=== PATIENT | male | born 1995 | race Caucasian/White ===

== ENCOUNTER 2022-02-14 19:31 | Emergency (ER) | payer OTHER, SELFPAY ==
[2022-02-14 19:32] VITALS: BP 136/94; PULSE 96; RESP 18; TEMP 36.6; O2SAT 97; BMI 28.5
--- NOTE | 2022-02-14 19:49 | RAD_ITS ---
STUDY: XR Hand Min 3 Views REASON FOR EXAM: Male, 26 years old. Injury/Pain TECHNIQUE: XR Hand Min 3 Views RIGHT COMPARISON: None. FINDINGS: Normal radiocarpal articulation. Normal distal radioulnar joint. Normal visualized carpal bones. Normal carpal articulations Normal carpometacarpal articulation of the thumb. Normal second through fifth carpometacarpal joints. Normal metacarpi. Normal metacarpophalangeal joint of the thumb. Normal interphalangeal joint of the thumb. Normal proximal and distal phalanges of the thumb. Normal metacarpophalangeal joints of the second through fifth fingers. Normal proximal and distal interphalangeal joints of the second through fifth fingers. Normal phalanges of the second through fifth fingers. The soft tissue structures are unremarkable. RAD/Hand Min 3 Views IMPRESSION: There are no acute findings. Electronically Signed: Jr Quinn MD at 20:04 EST ,
--- NOTE | 2022-02-14 20:06 | ED.RN ---
drug screener with patient
--- NOTE | 2022-02-14 21:43 | EX.ED.UPPERE ---
HPI History of Present Illness Chief Complaint: Upper Extremity Injury Informant: patient Narrative Narrative: Patient hurt his right thumb at work approximately 46 hours ago. 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 Client swung out at him. Ended up hitting the patient's hand as it was in front of him. The thumb bent back in a hyperextension type position. He is right-hand dominant and this was the right thumb. He has pain really in the midportion of the thenar eminence. No wrist pain. No pain in other fingers elbow shoulder or other areas. No blood thinners. Pressing on it and motion makes it worse rest makes it better. Patient also has no numbness tingling. No fevers. Has not been ill recently. Patient has no chronic medical problems No regular medications No allergies No prior surgeries to the hand. PFSH PFSH Allergy/AdvReac Type Severity Reaction Status Date / Time No Known Allergies Allergy Verified 02/14/22 19:32 Social History Smoking Status: Never smoker EXAM Physical Exam Narrative Exam Narrative: Patient awake alert no acute distress. No sign of head trauma. Patient is breathing easily. He is awake alert no confusion. He does have a small amount of developing bruising at the midportion of his thenar eminence on the right hand. But is not really swollen. There is some mild tenderness there. No deformity. Bhanu's and reverse Bhanu's test are normal. No snuffbox or wrist tenderness or pain with motion. No distal numbness tingling. He has normal range of motion of his thumb including apposition. No more proximal tenderness. Const Vital Signs: 02/14/22 19:32 Temperature 97.9 F Temperature Source Temporal Pulse Rate 96 Respiratory Rate 18 Blood Pressure 136/94 H Blood Pressure Mean 108 Pulse Ox 97 Oxygen Delivery Method Room Air MDM MDM MDM Narrative Medical decision making narrative: Three-view x-ray of the patient's right hand was independently interpreted by me showing no foreign body. No dislocation. I see no fracture. No acute process. Final reading by radiology was also negative. Patient will be placed in thumb spica splint. I think ice rest nonsteroidals should be appropriate. After x-rays were reviewed, I did check the thumb and there is no ligamentous instability that I am getting. There is no gamekeepers thumb. Follow-up with Ortho as appropriate. We explained that it is possible to have a fractured does not show up on the first image. Radiography Diagnostic Testing: Clinical Impression(s) from Imaging Studies Hand X-Ray 02/14/22 19:49 IMPRESSION: There are no acute findings. Electronically Signed: Jr Quinn MD at 20:04 EST Reading Location ID and State: [facility] / [place] , Service support , Discharge Plan Triage Chief Complaint: Upper Extremity Injury ED Provider: Robbin Bhardwaj Dx/Rx/DC Orders Clinical Impression: Strain of right thumb, Contusion of hand Instructions: ED Hand Contusion, ED Finger Sprain Primary Care Provider: Care Physician,No Primary Referrals: Maximino Guevara DO [Non-Staff] - Jay Holland DO [Med Staff - Active Staff] - 1 Week if not improving Disposition Disposition: Home, Self Care
== END 2022-02-14 22:32 | disposition home or self-care (01) ==
PROVIDERS: Emergency Provider Emergency Medicine; Visit Provider Emergency Medicine
DX: S66.911A Strain of unspecified muscle, fascia and tendon at wrist and hand level, right hand, initial encounter (principal); S60.221A Contusion of right hand, initial encounter; W51.XXXA Accidental striking against or bumped into by another person, initial encounter; Y93.89 Activity, other specified; Y99.0 Civilian activity done for income or pay
CPT/HCPCS: 73130; 99283